=== PATIENT | male | born 1955 | race Caucasian/White ===

== ENCOUNTER 2019-02-11 20:47 | Emergency (ER) | payer BC ==
[2019-02-11] MEDS ORDERED: Lidocaine 1% PF 5 ML VIAL ONE (20:58)
[2019-02-11] MEDS ORDERED: Lidocaine 1% w/Epinephrine 1:100K 20 ML VIAL ONE (20:59)
[2019-02-11] MEDS ORDERED: Lidocaine 1% (PF) 30 ML VIAL ONE (21:01)
--- NOTE | 2019-02-11 22:09 | RAD ---
FINGERS RIGHT HAND: 02/11/19 Three views. HISTORY: Injury to fourth finger. FINDINGS/IMPRESSION: There is soft tissue swelling of the distal fourth finger. There is calcific fragments seen within th e soft tissues probably representing an avulsion fracture from the tuft of the distal phalanx. No oth er fracture or osseous abnormality identified. POS: OFF
[2019-02-11] MEDS ORDERED: Adacel (T-DAP) 0.5 ML SYRINGE ONE ×2 (22:26→22:35)
== END 2019-02-11 23:47 | disposition home or self-care (01) ==
LOC: ERS 20:47
DX: S62.634A Displaced fracture of distal phalanx of right ring finger, initial encounter for closed fracture (principal); S61.314A Laceration without foreign body of right ring finger with damage to nail, initial encounter; E11.9 Type 2 diabetes mellitus without complications; E78.5 Hyperlipidemia, unspecified; Z87.891 Personal history of nicotine dependence; Z79.84 Long term (current) use of oral hypoglycemic drugs; Z79.899 Other long term (current) drug therapy; Z79.82 Long term (current) use of aspirin; W45.8XXA Other foreign body or object entering through skin, initial encounter
CPT/HCPCS: 12042; 90471; 90715; J2001

== ENCOUNTER 2019-02-13 17:15 | Emergency (ER) | payer BC ==
[2019-02-13] MEDS ORDERED: Bacitracin 1 PK ONE (18:13)
== END 2019-02-13 18:20 | disposition home or self-care (01) ==
LOC: ERS 17:15
DX: S61.314D Laceration without foreign body of right ring finger with damage to nail, subsequent encounter (principal); E11.9 Type 2 diabetes mellitus without complications; E78.5 Hyperlipidemia, unspecified; Z87.891 Personal history of nicotine dependence; Z79.82 Long term (current) use of aspirin; Z79.899 Other long term (current) drug therapy; W45.8XXD Other foreign body or object entering through skin, subsequent encounter
CPT/HCPCS: 99282